=== PATIENT | male | born 1980 | race Two or more races ===

== ENCOUNTER 2023-01-26 09:35 | Outpatient (CLI) | payer OTHER | END 2023-01-26 09:47 | disposition home or self-care (01) | LOC: RAD 09:35 | PROVIDERS: ATTEND Physical Medicine & Rehabilitation | DX: M25.562 Pain in left knee (principal); M17.12 Unilateral primary osteoarthritis, left knee ==

== ENCOUNTER 2024-03-16 11:00 | Outpatient (CLI) | payer OTHER ==
[~2024-03-16 11:00] MED LIST: MELOXICAM15 MG PO
== END 2024-03-16 11:12 | disposition home or self-care (01) ==
LOC: RAD 11:00
DX: M25.512 Pain in left shoulder (principal); M99.07 Segmental and somatic dysfunction of upper extremity; M25.562 Pain in left knee; M99.06 Segmental and somatic dysfunction of lower extremity